=== PATIENT | female | born 1960 | race African-American/Black ===

== ENCOUNTER 2021-07-09 14:01 | Emergency (ER) | payer MEDICAID, SELFPAY ==
--- NOTE | ~2021-07-09 | CT_ITS ---
EXAMINATION: CT ABDOMEN AND PELVIS WITH CONTRAST CLINICAL INFORMATION: Severe abdominal pain, nausea vomiting and diarrhea. COMPARISON: None TECHNIQUE: Multidetector volumetric images were obtained from the superior aspect of the liver through the pubic symphysis following administration 85 mL of Omnipaque 350 intravenous contrast. Sagittal and coronal reformatted images were obtained on the technologist's workstation. Oral contrast: No This CT examination was performed using dose optimization techniques as appropriate, variously including the following: *Automated exposure control *Adjustment of mA and/or kV according to patient size (this includes techniques or standardized protocols for targeted exams where dose is matched to indication/reason for exam; i.e. extremities or head) *Use of iterative reconstruction technique DLP: 578 mGy-cm FINDINGS: LUNG BASES: Examination of lung nodules is limited by motion. No focal consolidation or pleural effusion. Mild subsegmental atelectasis. LIVER, GALLBLADDER, AND BILIARY TREE: There are a few too small to characterize liver hypodensities for instance as visualized on images 10 and 19 of series 3 which statistically are favored to represent simple cysts and do not require further follow-up. The liver is otherwise normal in size, shape, and attenuation. The gallbladder is unremarkable with no evidence of radiopaque gallstones, gallbladder wall thickening, or obvious pericholecystic inflammatory changes. PANCREAS: No focal abnormalities. The main pancreatic duct is slightly prominent measuring up to 0.4 cm although this is likely artifactual and related with volume averaging in the setting of significant motion. SPLEEN: Unremarkable. ADRENAL GLANDS: There is a 2.4 cm hyperattenuating lesion in the left adrenal gland (3:19). There is an additional small hyperattenuating lesion in the right adrenal gland measuring 1.3 cm (3:17). KIDNEYS AND URETERS: The kidneys are normal in size, shape, and attenuation. There is a 1.6 cm hyperattenuating lesion in the posterior surface of the upper pole of the left kidney measuring up to 66 Hounsfield units (3:18). There are multiple other too small to characterize hypodensities in both kidneys which statistically are likely to represent simple cysts and do not require follow-up. No hydronephrosis, hydroureter, or calculi seen. Extrarenal pelvises. No perinephric stranding. BLADDER: Unremarkable. GASTROINTESTINAL TRACT: Small hiatal hernia. The stomach and the small bowel are nondilated. Normal appendix. Colonic diverticulosis but no significant associated pericolic inflammatory changes to suspect acute diverticulitis. No bowel obstruction. ABDOMINAL WALL: Midline surgical scar. No significant hernia. LYMPH NODES: Evaluation is limited by motion. However, no definite lymphadenopathy by size criteria is identified. VASCULAR: Scattered atherosclerotic disease. The abdominal aorta is of normal diameter. PELVIC VISCERA: Hysterectomy. No adnexal lesions. OSSEOUS STRUCTURES: No acute or aggressive osseous findings. Thoracolumbar spondylosis. CT/CT abdomen pelvis w con IMPRESSION: Evaluation is significantly limited by motion. Diverticulosis but no evidence of acute diverticulitis. No bowel obstruction. Indeterminate bilateral adrenal lesions, the largest on the left side measuring up to 2.4 cm. These should be further characterized with a dynamic adrenal mass protocol. Indeterminate 1.6 cm hyperattenuating lesion in the upper pole of the left kidney. This should be also further evaluated with a dedicated renal ultrasound or a dynamic abdominal CT/MR.
[2021-07-09 15:02] VITALS: BP 162/90; PULSE 72; RESP 18; TEMP 36.4; O2SAT 99; BMI 29.9
--- NOTE | 2021-07-09 16:14 | ED_ITS ---
HPI - Abdominal Pain General Chief Complaint: Abdominal Pain Stated Complaint: abd pain Time Seen by Provider: 07/09/21 16:09 Source: patient Mode of arrival: ambulatory Limitations: no limitations History of Present Illness HPI narrative: 60 y/o female with history of HTN, history of bleeding ulcer several years ago, s/p hysterectomy who presents to the ER with acute onset of severe central abdominal pain yesterday along with recurrent episodes of bilious vomiting and non-bloody diarrhea. Patient denies any fever or chills. She states the pain comes and goes it is cramping in nature. It is severe when it comes. She last vomited just before coming to the emergency room. Her last bowel movement was a couple hours ago very loose and watery. No blood or mucus. No one that she has been around has similar symptoms. She does not think she ate any spoiled food. MD elicited complaint: abdominal pain Pertinent past history: gastrointestinal bleeding Onset (ago): day(s) (1) Pain Consistency: constant Location: epigastric and periumbilical Severity: severe Pain scale (0-10): 10 Quality: stabbing Radiation: none Migration to: no migration Exacerbating factors: nothing Relieving factors: nothing Associated symptoms: nausea, vomiting, diarrhea and hematochezia Related Data Previous Rx's Medication Instructions Recorded ondansetron 4 mg disintegrating 4 mg PO Q8H PRN #5 tab 07/09/21 tablet Allergies Allergy/AdvReac Type Severity Reaction Status Date / Time No Known Allergies Allergy Verified 07/09/21 15:02 Review of Systems Review of Systems Constitutional: No Fever, No Chills ENT/Mouth: No sore throat, No Rhinorrhea, No Swallowing Difficulty Cardiovascular: No Chest Pain, No SOB, No Orthopnea, No Edema Respiratory: No Cough, No Sputum, No Wheezing, No dyspnea Gastrointestinal: + Nausea, + Vomiting, + Diarrhea, + abdominal Pain, No Hematochezia, No Melena Genitourinary: No Dysuria, No Urinary Frequency, No Hematuria Musculoskeletal: No joint pain, No Myalgias Skin: No Skin Lesions, No rash Neuro: + Weakness, No Numbness, No Dizziness, No Headache Psych: No Anxiety/Panic, No Depression Heme/Lymph: No Bruising, No Lymphadenopathy Endocrine: No Polyuria, No Polydipsia Physical Exam Vital Signs: Vital Signs: Last Vital Signs Temp 97.6 F 07/09/21 15:02 Pulse 54 07/09/21 18:33 Resp 16 07/09/21 18:33 BP 123/63 07/09/21 18:33 Pulse Ox 96 07/09/21 18:33 Body Mass Index 29.9 Appearance: Alert. Oriented X3. Appears in pain, laying on her left side, curled in a ball, breathing heavily. . Eyes: Pupils equal, round and reactive to light. ENT: Pharynx normal. Neck: Normal inspection. Neck supple. CVS: Normal heart rate and rhythm. Pulses normal. Respiratory: Mild respiratory distress with increased RR. Breath sounds normal. Abdomen: Softly distended, tender in the epigastric and periumbilical areas as well as RLQ, no rebound but some guarding is present, hyperactive +BS x4 Skin: Skin warm and dry. Normal skin color. Normal skin turgor. No rashes. Extremities: No lower extremity edema. Neuro: Oriented X 3. No motor deficit. No sensory deficit. Course Course Course Narrative: 60-year-old female with history of a possible upper GI bleed in the past presents to the ER with acute onset of central abdominal pain along with numerous episodes of bilious vomiting and blood-streaked diarrhea that started yesterday. She appears uncomfortable on arrival and is asking for something for pain. She is hypertensive 160/90. Heart rates are normal and she is afebrile. Will plan to get basic lab workup and CT scan for further evaluation. IV fluids, Zofran and morphine have been ordered. Will reassess. Reevaluation(s) Reevaluation #1: Lab workup showing a very mild leukocytosis white blood cell count 11.1. Electrolytes are within normal limits. LFTs and lipase are normal. She is sleeping comfortably after dose of Zofran and morphine. Her CT scan is being done now. Reevaluation #2: CT scan limited due to motion artifact however there are no acute findings to explain patient's symptoms. No evidence of bowel obstruction. Incidental findings of a 1.6 cm lesion in the left upper pole of the kidney. Also bilateral adrenal lesions largest on the left side 2.4 cm. We discussed these results and need for non-emergent outpatient follow up. She is from [place] and just visiting the area. She will discuss with her doctor in [place]. At this time she is stable for discharge home with supportive care and PRN zofran. MDM - Abdominal Pain Lab Data Result diagrams: 07/09/21 16:40 07/09/21 17:22 Labs: Lab Results 07/09/21 07/09/21 Range/Units 16:40 17:22 WBC 11.1 H (4.8-10.8) X10*3/uL RBC 4.42 (4.20-5.50) X10*6/uL Hgb 13.9 (12.0-16.0) g/dl Hct 43.1 (37.0-47.0) % MCV 97.5 (80.0-98.0) fL MCH 31.4 (27.0-33.0) pg MCHC 32.3 (31.0-35.0) g/dl RDW 12.6 (11.0-16.0) % Plt Count 226 (160-400) X10*3/uL MPV 10.3 (9.4-12.3) fL Immature Gran % (Auto) 0.5 H (0.0-0.4) % Neut % (Auto) 87.7 H (45-73) % Lymph % (Auto) 9.7 L (20-40) % Duchesne % (Auto) 1.9 L (2-11) % Eos % (Auto) 0.0 (0-4) % Baso % (Auto) 0.2 (0-2) % Lymph # (Auto) 1.1 L (1.2-4.9) X10*3/uL Duchesne # (Auto) 0.2 (0.1-1.2) X10*3/uL Eos # (Auto) 0.0 (0.0-0.4) X10*3/uL Baso # (Auto) 0.0 (0.0-0.2) X10*3/uL Abs Immat Gran (auto) 0.05 H (0.00-0.03) X10*3/uL Absolute Neuts (auto) 9.7 H (2.0-8.3) x10*3/uL Absolute Nucleated RBC 0.000 (0.0-0.012) X10*3/uL Nucleated RBC % (auto) 0.0 (0.0-0.2) /100WBC Sodium 141 (135-145) mmol/L Potassium 4.3 (3.3-5.1) mmol/L Chloride 107 (96-108) mmol/L Carbon Dioxide 21 L (22-29) mmol/L Anion Gap 17 (12-20) BUN 12 (9-16) mg/dL Creatinine 0.70 (0.5-1.4) mg/dL Estim Creat Clear Calc 89.0 Estimated GFR > 60 Random Glucose 140 H (60-115) mg/dL Calcium 9.7 (8.4-10.2) mg/dL Total Bilirubin 0.3 (0.0-1.0) mg/dL AST 16 (5-31) U/L ALT 15 (0-31) U/L Alkaline Phosphatase 57 (39-117) U/L Total Protein 6.8 (6.5-8.0) g/dL Albumin 4.3 (3.5-5.0) g/dL Lipase 18 (8-78) U/L Discharge Plan Discharge Clinical Impression: Gastroenteritis Patient Disposition: Home, Self-Care Instructions: Gastroenteritis (ED) Additional Instructions: Your lab workup today was unremarkable. Your CT scan did not show any acute causes of your abdominal pain. Your most likely suffering from a GI bug. These are most likely self-limited and resolve within 24-48 hours. Stick to a bland diet likely not feeling well. Take the prescribed nausea medication as needed for nausea vomiting.(sent to [facility] on [address] in [place] near the hospital) Recommend [id number] Pepto-Bismol as needed for upset stomach or diarrhea. Follow-up with your doctor as needed. If you develop new or worsening symptoms call 911 or come back to the ER for further evaluation. Prescriptions: New ondansetron 4 mg tablet,disintegrating 4 mg PO Q8H PRN (Reason: nausea and vomiting) Qty: 5 RF: 0 PMFSH Social History Social History Patient Tobacco Use Status: Current everyday Tobacco user Smoked in Last 30 Days: Yes Use of substances other than those prescribed or required for medical reasons: No Advance Directives: No Advance Directives Information Provided: Yes Patient : No
[2021-07-09 16:33] VITALS: BP 145/84; PULSE 61; RESP 18; O2SAT 99
[2021-07-09] MEDS: 0.9 % Sodium Chloride 1,000 ML 999 ML IVCONT (16:43)
[2021-07-09] MEDS: ondansetron HCL 4 MG/2 ML VIAL IVPUSH (16:44)
[2021-07-09] MEDS: Morphine Sulfate 4 MG/ML CARTRIDGE IVPUSH (16:44)
[2021-07-09 16:45] LABS: Basophils Percent Auto 0.2 % (0-2); Hematocrit 43.1 % (37.0-47.0); Hemoglobin 13.9 g/dl (12.0-16.0); Imm Gran Abs Auto 0.05 X10*3/uL (0.00-0.03); Imm Gran Pct Auto 0.5 % (0.0-0.4); Lymphocytes Absolute Auto 1.1 X10*3/uL (1.2-4.9); Lymphocytes Percent Auto 9.7 % (20-40); MANUAL DIFF FLAG NO; Mean Corpuscular HGB Conc 32.3 g/dl (31.0-35.0); Mean Corpuscular Hemoglobin 31.4 pg (27.0-33.0); Mean Corpuscular Volume 97.5 fL (80.0-98.0); Mean Platelet Volume 10.3 fL (9.4-12.3); Monocytes Absolute Auto 0.2 X10*3/uL (0.1-1.2); Monocytes Percent Auto 1.9 % (2-11); Neutrophils Absolute Auto 9.7 x10*3/uL (2.0-8.3); Neutrophils Percent Auto 87.7 % (45-73); Platelet Count 226 X10*3/uL (160-400); Red Blood Count 4.42 X10*6/uL (4.20-5.50); Red Cell Distribution Width 12.6 % (11.0-16.0); White Blood Count 11.1 X10*3/uL (4.8-10.8)
[2021-07-09 17:47] LABS: Alanine Aminotransferase 15 U/L (0-31); Albumin Level 4.3 g/dL (3.5-5.0); Alkaline Phosphatase 57 U/L (39-117); Anion Gap 17 (12-20); Aspartate Amino Transferase 16 U/L (5-31); Bilirubin Total 0.3 mg/dL (0.0-1.0); Blood Urea Nitrogen 12 mg/dL (9-16); Calcium 9.7 mg/dL (8.4-10.2); Carbon Dioxide 21 mmol/L (22-29); Chloride 107 mmol/L (96-108); Estimated Glomerular Filt Rate > 60; Glucose Random 140 mg/dL (60-115); Lipase 18 U/L (8-78); Potassium 4.3 mmol/L (3.3-5.1); Sodium 141 mmol/L (135-145); Total Protein 6.8 g/dL (6.5-8.0)
[2021-07-09] MEDS: iohexoL 350 MG/ML 100 ML INFUS..BTL IV (18:06)
[2021-07-09 18:33] VITALS: BP 123/63; PULSE 54; RESP 16; O2SAT 96
== END 2021-07-09 21:45 | disposition home or self-care (01) ==
PROVIDERS: Emergency Provider Internal Medicine
DX: K52.9 Noninfective gastroenteritis and colitis, unspecified (principal); R10.9 Unspecified abdominal pain; I10 Essential (primary) hypertension; R93.5 Abnormal findings on diagnostic imaging of other abdominal regions, including retroperitoneum; N28.9 Disorder of kidney and ureter, unspecified; Z90.710 Acquired absence of both cervix and uterus; F17.200 Nicotine dependence, unspecified, uncomplicated
CPT/HCPCS: 36415; 74177; 80053; 83690; 85025; 96361; 96374; 96375; 99284; J2270; J2405; Q9967